=== PATIENT | male | born 1950 | race Caucasian/White ===

== ENCOUNTER 2021-02-23 13:26 | Inpatient (IN) ==
[2021-02-23] MEDS ORDERED: SODIUM CHLORIDE 0.9% 1000ML 500 ML IV ONE (13:45)
[2021-02-23 14:00] LABS: Hematocrit (blood only) 24.7 % (42-52); Hemoglobin 8.6 g/dL (14.0-18.0); Mean Corpuscular Hemoglobin 38.6 pg (25-34); Mean Corpuscular Hgb Conc 34.8 g/dL (32-36); Mean Corpuscular Volume 110.8 fL (80-100); Mean Platelet Volume 8.2 fL (7.4-10.4); Platelet Count 187 K/uL (130-400); RDW Coefficient of Variation 15.1 % (11.5-14.5); RDW Standard Deviation 59.7 fL (36.4-46.3); Red Blood Count 2.23 M/uL (4.7-6.1); White Blood Count 2.59 K/uL (4.8-10.8)
--- NOTE | 2021-02-23 14:06 | Emergency Department Note ---
Impression & Plan Pulmonary embolism, DVT (deep venous thrombosis), Fever and neutropenia, Anemia, Abnormal CBC, Hypoxia ED Provider Note Grades wereNAME: NOEL MANCILLA AGE: 70 SEX: M : 1950 ARRIVES VIA: Walk-In INFORMANT: Patient, ED PROVIDER(S): Neftaly Burt DO CHIEF COMPLAINT: Chest pain HPI: The patient is a 70-year-old male who presented to the emergency department for an evaluation of chest pain. The patient states that he started having chest pain over the course of the last 3 to 4 days. He was seen at [facility] and had a can tire work-up which included a CT of the chest. The CT the chest appeared to be consistent with a pulmonary embolism and the patient was started on Eliquis at that time. He started taking Eliquis on Sunday evening. He has been compliant with the medication as well as his other ou tpatient medication regimen. He continues to have very severe chest pain and shortness of breath. He notices significant symptoms upon walking. He also notices symptoms worsening with exertion. He denies having any nausea or vomiting. He has no lower extremity swelling or pain. The patient did have a recent aspiration of a knee effusion. He notices pain in his left leg ever since that time. He denies having any back pain or belly pain. He states his symptoms are moderate to severe and worsened with any exertion. Symptoms are mildly improved on oxygen and rest. ROS: See above HPI for pertinent positives & negatives. A total of 10 systems reviewed and were otherwise negative. PAST MEDICAL HISTORY: See Below PAST SURGICAL HISTORY: See Below FAMILY HISTORY: See Below SOCIAL HISTORY: See Below HOME MEDICATIONS: See Below ALLERGIES: See Below VITALS: See Below PHYSICAL EXAMINATION: GENERAL: The patient is awake and alert. The patient is somewhat anxious appearing. EYES: The conjunctivae are clear. The pupils are round and reactive. EARS, NOSE, MOUTH AND THROAT: The nose is without any evidence of any deformity. NECK: The neck is nontender and supple. RESPIRATORY: Normal respiratory effort is noted there is no evidence of wheezing rhonchi or rales CARDIOVASCULAR: Tachycardic rate was noted. There is no definite murmur. GASTROINTESTINAL: The abdomen is soft. Abdomen is nontender. MUSCULOSKELETAL/EXTREMITIES: There is no evidence of gross deformity full range of motion is noted in the hips and shoulders. There is an effusion noted of the left knee. SKIN: There is no obvious evidence of any rash. Calf tenderness was noted with the left leg. NEUROLOGIC: Patient is awake alert and oriented x3. MEDICAL DECISION MAKING: The patient is a 70-year-old male who presented to the emergency department with chest pain and difficulty breathing. He was diagnosed with a pulmonary embolism earlier this week. He was started on oral anticoagulation. He has been compliant with his medication regimen. He started having worsening symptoms and started having difficulty breathing so he came to the emergency department. The patient was hypoxic. He appeared to have very significant difficulty breathing on physical exam. The patient had left lower extremity pain and has a history of a recent arthrocentesis of his left knee. Ultrasound did reveal signs of DVT in this leg and that is likely the source of the pulmonary embolism. He also was found to have a very abnormal CBC with anemia and a low white blood cell count. During his time in the emergency department he did have a fever. This was treated with immediate blood cultures and IV antibiotics by the admitting team. The patient may require further work-up for possible causes of this anemia as well as his abnormal CBC and could be consistent with a leukemia process. The patient was started on IV heparin in the emergency department. He was reevaluated multiple times. [facility] have agreed to evaluate the patient in the emergency department for further management and disposition. Triage Nursing notes reviewed. Prior medical records reviewed Vital Signs: reviewed and remarkable for hypoxia and tachycardia. Differential diagnosis: Cardiac ischemia, aortic dissection, pulmonary embolism, pneumothorax, pneumonia, pericarditis, myocarditis, esophageal rupture, GERD, cholecystitis, pancreatitis, musculoskeletal, as well as other pathologies. ER treatment provided: See below Diagnostics interpreted by me: ECG: EKG was obtained in the emergency department. My interpretation is sinus tachycardia at 113 bpm. There is no ectopy. Lateral ST depressions were noted. This was compared to a tracing from February 18, 2021. Increased rate was noted. No other significant changes were appreciated. Cardiac Monitoring: An order was placed for continuous cardiac monitoring. The monitor shows a rate of 115 bpm with sinus tachycardia rhythm. Laboratory studies: As stated above and show below. Imaging studies: See below Consultation(s): 1600: I discussed this case with Debi who is on-call for the [facility] hospitalist group. They will evaluate the patient in the emergency department. ED COURSE: Procedures: none PDMP:reviewed and no issues Critical Care: I have personally spent greater than 50 minutes of critical care time in the direct management of this patient. This includes bedside care, interpretation of diagnostic studies, and testing, discussion with consultants, patient, and family members, and other required patient management activities. This 50 minutes is in excess of all separately billable procedures. Past Med/Surg History Medical History (Updated 02/23/21 @ 19:43 by Neftaly Burt DO) History of colon polyps History of melanoma Hypertension Pulmonary embolism Sciatica Social History Smoking Status: Never smoker Hx Alcohol Use: No Hx Substance Use: No Preferred Language: Yi Beliefs That Will Affect Care: None Current Living Situation: Spouse Feels Safe at Home: Yes Safety Concerns: Feels Safe At This Time Assistive Devices: Walker Allergies Allergies Allergy/AdvReac Type Severity Reaction Status Date / Time tadalafil [From Cialis] AdvReac Mild Rash Unverified 02/23/21 16:05 Home Meds Home Medications Medication Instructions Recorded Confirmed allopurinol 100 mg PO QAM 01/09/21 02/23/21 Folate 666 mg PO QAM 02/23/21 02/23/21 apixaban [Eliquis] 10 mg PO BID 02/23/21 02/23/21 cyanocobalamin (vitamin B-12) 1,000 mcg PO QAM 02/23/21 02/23/21 [Vitamin B-12] Results & Data (ED) Vital Signs Vital Signs - 24 hr 02/23/21 13:29 02/23/21 13:45 02/23/21 14:16 Temperature 36.8 C Temperature Source Temporal Artery Scan Oral Pulse Rate 97 H Pulse Rate [Apical] Pulse Rhythm Regular Pulse Strength Normal Respiratory Rate 18 Respiratory Effort / Characteristics Non-Labored Spontaneous Respiratory Depth Normal Respiratory Pattern Regular Blood Pressure 114/76 Blood Pressure [Left Arm] Blood Pressure Mean 88 Blood Pressure Mean [Left Arm] Blood Pressure Position Sitting Pulse Oximetry 95 92 Oxygen Delivery Method Room Air Room Air Nasal Cannula Oxygen Flow Rate 2 Sepsis Recent Fever Within 48 Hours No Sepsis New/Unexplained Change in Mental Status N/A Sepsis Action Taken by Nursing No Action Required 02/23/21 15:00 02/23/21 15:41 02/23/21 16:18 Temperature Temperature Source Pulse Rate 105 H 100 H Pulse Rate [Apical] 101 H Pulse Rhythm Pulse Strength Respiratory Rate 22 26 H 25 H Respiratory Effort / Characteristics Respiratory Depth Respiratory Pattern Blood Pressure 141/84 H Blood Pressure [Left Arm] 144/86 H Blood Pressure Mean 103 Blood Pressure Mean [Left Arm] 105 Blood Pressure Position Pulse Oximetry 100 96 Oxygen Delivery Method Nasal Cannula Nasal Cannula Oxygen Flow Rate 2 Sepsis Recent Fever Within 48 Hours Sepsis New/Unexplained Change in Mental Status Sepsis Action Taken by Correction Medications Current Medication List: was personally reviewed by me Laboratory Data Attestation: I reviewed the patient's lab results. Result diagrams: 02/23/21 13:45 02/23/21 13:45 Lab Results 02/23/21 02/23/21 02/23/21 Range/Units 13:45 13:45 13:45 WBC 2.59 L (4.8-10.8) K/uL RBC 2.23 L (4.7-6.1) M/uL Hgb 8.6 L (14.0-18.0) g/dL Hct 24.7 L (42-52) % MCV 110.8 H (80-100) fL MCH 38.6 H (25-34) pg MCHC 34.8 (32-36) g/dL RDW Std Deviation 59.7 H (36.4-46.3) fL RDW Coeff of Jemima 15.1 H (11.5-14.5) % Plt Count 187 (130-400) K/uL MPV 8.2 (7.4-10.4) fL Neutrophils % (Manual) 24.6 % Lymphocytes % (Manual) 46.3 % Monocytes % (Manual) 21.1 % Eosinophils % (Manual) 0.9 % Basophils % (Manual) 0.9 % Metamyelocytes % (Man) 0.9 % Myelocytes % (Man) 1.8 % Blast Cells % (Manual) 3.5 % Neutrophils # (Manual) 0.64 L (1.4-6.5) K/uL Total Absolute Neuts 0.64 L* (1.4-6.5) K/uL Lymphocytes # (Manual) 1.20 (1.2-3.4) K/uL Total Abs Lymphocytes 1.20 (1.2-3.4) K/uL Monocytes # (Manual) 0.55 (0.11-0.59) K/uL Eosinophils # (Manual) 0.02 (0-0.5) K/uL Basophils # (Manual) 0.02 (0-0.2) K/uL Metamyelocytes # (Man) 0.02 H (0-0) K/uL Myelocytes # (Manual) 0.05 H (0-0) K/uL Blast Cells # (Man) 0.09 H (0-0) K/uL Blood Smear Review [facility] 1+ PT Cancelled INR Cancelled APTT Cancelled PTT Ratio Cancelled Sodium 135 L (136-145) mmol/L Potassium 4.4 (3.5-5.1) mmol/L Chloride 101 (98-107) mmol/L Carbon Dioxide 24 (21-32) mmol/L Anion Gap 9.0 (3-11) BUN 17 (7-18) mg/dl Creatinine 1.07 (0.6-1.4) mg/dl Est Cr Clr Drug Dosing Not Reportable Est GFR ( Amer) 81.7 ml/min Est GFR (Non-Af Amer) 70.5 ml/min BUN/Creatinine Ratio 16.2 (10-20) Glucose 159 H (70-99) mg/dl Calcium 9.5 (8.5-10.1) mg/dl Total Bilirubin 0.7 (0.2-1) mg/dl AST 22 (15-37) U/L ALT 36 (12-78) U/L Alkaline Phosphatase 72 (45-117) U/L Troponin I < 0.015 (0-0.045) ng/ml NT-Pro-B Natriuret Pep Cancelled Total Protein 8.9 H (6.4-8.2) gm/dl Albumin 2.4 L (3.4-5.0) gm/dl Globulin 6.5 H (2.5-4.0) gm/dl Albumin/Globulin Ratio 0.4 L (0.9-2) Lipase 36 L (73-393) U/L COVID-19 Eval Order SARS-CoV-2 (PCR) (Negative) 02/23/21 02/23/21 02/23/21 Range/Units 13:45 14:32 14:32 WBC (4.8-10.8) K/uL RBC (4.7-6.1) M/uL Hgb (14.0-18.0) g/dL Hct (42-52) % MCV (80-100) fL MCH (25-34) pg MCHC (32-36) g/dL RDW Std Deviation (36.4-46.3) fL RDW Coeff of Jemima (11.5-14.5) % Plt Count (130-400) K/uL MPV (7.4-10.4) fL Neutrophils % (Manual) % Lymphocytes % (Manual) % Monocytes % (Manual) % Eosinophils % (Manual) % Basophils % (Manual) % Metamyelocytes % (Man) % Myelocytes % (Man) % Blast Cells % (Manual) % Neutrophils # (Manual) (1.4-6.5) K/uL Total Absolute Neuts (1.4-6.5) K/uL Lymphocytes # (Manual) (1.2-3.4) K/uL Total Abs Lymphocytes (1.2-3.4) K/uL Monocytes # (Manual) (0.11-0.59) K/uL Eosinophils # (Manual) (0-0.5) K/uL Basophils # (Manual) (0-0.2) K/uL Metamyelocytes # (Man) (0-0) K/uL Myelocytes # (Manual) (0-0) K/uL Blast Cells # (Man) (0-0) K/uL Blood Smear Review [facility] PT 13.0 H INR 1.3 H APTT 30.2 PTT Ratio 1.1 Sodium (136-145) mmol/L Potassium (3.5-5.1) mmol/L Chloride (98-107) mmol/L Carbon Dioxide (21-32) mmol/L Anion Gap (3-11) BUN (7-18) mg/dl Creatinine (0.6-1.4) mg/dl Est Cr Clr Drug Dosing Est GFR ( Amer) ml/min Est GFR (Non-Af Amer) ml/min BUN/Creatinine Ratio (10-20) Glucose (70-99) mg/dl Calcium (8.5-10.1) mg/dl Total Bilirubin (0.2-1) mg/dl AST (15-37) U/L ALT (12-78) U/L Alkaline Phosphatase (45-117) U/L Troponin I (0-0.045) ng/ml NT-Pro-B Natriuret Pep 310 Total Protein (6.4-8.2) gm/dl Albumin (3.4-5.0) gm/dl Globulin (2.5-4.0) gm/dl Albumin/Globulin Ratio (0.9-2) Lipase (73-393) U/L COVID-19 Eval Order Covid19 at [facility] SARS-CoV-2 (PCR) (Negative) 02/23/21 Range/Units 14:32 WBC (4.8-10.8) K/uL RBC (4.7-6.1) M/uL Hgb (14.0-18.0) g/dL Hct (42-52) % MCV (80-100) fL MCH (25-34) pg MCHC (32-36) g/dL RDW Std Deviation (36.4-46.3) fL RDW Coeff of Jemima (11.5-14.5) % Plt Count (130-400) K/uL MPV (7.4-10.4) fL Neutrophils % (Manual) % Lymphocytes % (Manual) % Monocytes % (Manual) % Eosinophils % (Manual) % Basophils % (Manual) % Metamyelocytes % (Man) % Myelocytes % (Man) % Blast Cells % (Manual) % Neutrophils # (Manual) (1.4-6.5) K/uL Total Absolute Neuts (1.4-6.5) K/uL Lymphocytes # (Manual) (1.2-3.4) K/uL Total Abs Lymphocytes (1.2-3.4) K/uL Monocytes # (Manual) (0.11-0.59) K/uL Eosinophils # (Manual) (0-0.5) K/uL Basophils # (Manual) (0-0.2) K/uL Metamyelocytes # (Man) (0-0) K/uL Myelocytes # (Manual) (0-0) K/uL Blast Cells # (Man) (0-0) K/uL Blood Smear Review [facility] PT INR APTT PTT Ratio Sodium (136-145) mmol/L Potassium (3.5-5.1) mmol/L Chloride (98-107) mmol/L Carbon Dioxide (21-32) mmol/L Anion Gap (3-11) BUN (7-18) mg/dl Creatinine (0.6-1.4) mg/dl Est Cr Clr Drug Dosing Est GFR ( Amer) ml/min Est GFR (Non-Af Amer) ml/min BUN/Creatinine Ratio (10-20) Glucose (70-99) mg/dl Calcium (8.5-10.1) mg/dl Total Bilirubin (0.2-1) mg/dl AST (15-37) U/L ALT (12-78) U/L Alkaline Phosphatase (45-117) U/L Troponin I (0-0.045) ng/ml NT-Pro-B Natriuret Pep Total Protein (6.4-8.2) gm/dl Albumin (3.4-5.0) gm/dl Globulin (2.5-4.0) gm/dl Albumin/Globulin Ratio (0.9-2) Lipase (73-393) U/L COVID-19 Eval Order SARS-CoV-2 (PCR) NEGATIVE (Negative) Administered Medications Heparin Sodium/Dextrose (Heparin Sodium/Dextrose) 25,000 units in 500 mls @ 29 mls/hr IV .[id number] SILVA; Protocol Stop: 03/25/21 15:56 Last Titration: 02/23/21 19:37 Dose: 1,450 units/hr, 29 mls/hr Documented by: [id number] Cosigned by: [id number] Admin: 02/23/21 15:53 Dose: 1,450 units/hr, 29 mls/hr Documented by: [id number] Cosigned by: [id number] Vancomycin HCl 2,500 mg/ (Sodium Chloride) 550 mls @ 200 mls/hr IV 1845 ONE; Protocol Stop: 02/23/21 21:29 Last Admin: 02/23/21 19:00 Dose: 200 mls/hr Documented by: [id number] Discontinued Medications Acetaminophen (Acetaminophen 500 Mg Tab) 500 mg PO NOW STA Stop: 02/23/21 17:09 Last Admin: 02/23/21 17:40 Dose: 500 mg Documented by: [id number] Heparin Sodium (Porcine) (Heparin Sod (Porcine) 1000 Unit/Ml) 7,000 units IV NOW ONE Stop: 02/23/21 15:58 Last Admin: 02/23/21 15:52 Dose: 7,000 units Documented by: [id number] Cosigned by: [id number] Heparin Sodium/Dextrose (Heparin Iv Adult Wt-Based Standard With Bolus Protocol) 1 ea IV NOW STA; Protocol Stop: 02/23/21 15:43 Last Admin: 02/23/21 16:05 Dose: 1 ea Documented by: [id number] Sodium Chloride (Nss 1000ml) 500 mls @ 999 mls/hr IV .Q31M ONE Stop: 02/23/21 14:15 Last Infusion: 02/23/21 14:46 Dose: 0 mls/hr Documented by: [id number] Admin: 02/23/21 14:15 Dose: 999 mls/hr Documented by: [id number] Piperacillin Sod/Tazobactam Sod (Zosyn) 4.5 gm in 120 mls @ 240 mls/hr IV NOW STA; Protocol Stop: 02/23/21 18:01 Last Infusion: 02/23/21 19:06 Dose: 0 mls/hr Documented by: [id number] Admin: 02/23/21 17:41 Dose: 240 mls/hr Documented by: [id number] Imaging Data Radiologist's Impression: Chest X-Ray 02/23/21 13:45 SINGLE VIEW CHEST CLINICAL HISTORY: Atypical chest pain. FINDINGS: An AP, portable, upright chest radiograph is obtained No prior studies are available for comparison at the time of dictation. The examination is degraded by portable technique and patient rotation. The heart is enlarged. The pulmonary vasculature is noncongested. There are mild bibasilar airspace opacities. No large pleural effusion or pneumothorax is seen. The skeletal structures are osteopenic. The bony thorax is grossly intact. IMPRESSION: 1. Cardiomegaly without radiographic evidence of congestive failure. 2. There are mild bibasilar airspace opacities which likely represent atele ctasis. Correlate clinically for evidence of a mild infectious/inflammatory pneumonitis. ACT 112: Negative or not required by law. Electronically signed by: Baljinder Naqvi M.D. 02/23/2021 2:16 PM Venous Doppler Study 02/23/21 13:45 BILATERAL LOWER EXTREMITY VENOUS DOPPLER HISTORY: Screening study in a patient with pulmonary embolus recent PE COMPARISON STUDY: None. FINDINGS: There is normal compressibility, flow, and augmentation within the [facility] lower extremity deep venous structures. Occlusive thrombus is noted within the left superficial femoral vein medial and distal portions extending into the peroneal vein. Remaining deep venous structures of the left lower extremity appear unremarkable. Mildly complex Antony's cyst on the left measures 5.6 x 2.4 x 0.9 cm. IMPRESSION: 1. Left lower extremity deep venous thrombi as above. 2. No right lower extremity DVT. ACT 112: Negative or not required by law. Electronically signed by: Csear Masterson M.D. 02/23/2021 3:21 PM Discharge Plan Visit Data Chief Complaint: Chest Pain Stated Complaint: CHEST PAIN, ON ELQUIS ED Provider: Neftaly Burt Discharge Problem: Pulmonary embolism, DVT (deep venous thrombosis), Fever and neutropenia, Anemia, Abnormal CBC, Hypoxia Patient Disposition: Admitted As Inpatient Condition: Good Discharge Instructions Interventions: ED Discharge Assessment Last Done: 02/23/21 17:54 Discharge Problem: Pulmonary embolism Qualifiers: Pulmonary embolism type: unspecified Chronicity: acute Acute cor pulmonale presence: unspecified Qualified Code(s): I26.99 - Other pulmonary embolism without acute cor pulmonale DVT (deep venous thrombosis) Qualifiers: DVT location: lower extremity Affected thrombotic vein of extremity: popliteal Chronicity: acute Laterality: left Qualified Code(s): I82.432 - Acute embolism and thrombosis of left popliteal vein Anemia Qualifiers: Anemia type: unspecified type Qualified Code(s): D64.9 - Anemia, unspecified
--- NOTE | 2021-02-23 14:18 | XRay Report ---
SINGLE VIEW CHEST CLINICAL HISTORY: Atypical chest pain. FINDINGS: An AP, portable, upright chest radiograph is obtained No prior studies are available for co mparison at the time of dictation. The examination is degraded by portable technique and patient rota tion. The heart is enlarged. The pulmonary vasculature is noncongested. There are mild bibasilar airs pace opacities. No large pleural effusion or pneumothorax is seen. The skeletal structures are osteop enic. The bony thorax is grossly intact. IMPRESSION: 1. Cardiomegaly without radiographic evidence of congestive failure. 2. There are mild bibasilar airspace opacities which likely represent atelectasis. Correlate clinical ly for evidence of a mild infectious/inflammatory pneumonitis. ACT 112: Negative or not required by law. Electronically signed by: Baljinder Naqvi M.D. 02/23/2021 2:16 PM
[2021-02-23 14:20] LABS: Alanine Aminotransferase 36 U/L (12-78); Albumin Level 2.4 gm/dl (3.4-5.0); Aspartate Aminotransferase 22 U/L (15-37); BUN Creatinine Ratio 16.2 (10-20); Blood Urea Nitrogen 17 mg/dl (7-18); Calcium 9.5 mg/dl (8.5-10.1); Carbon Dioxide 24 mmol/L (21-32); Chloride 101 mmol/L (98-107); Est GFR (African American) 81.7 ml/min; Est GFR (Non-African American) 70.5 ml/min; Glucose 159 mg/dl (70-99); Lipase 36 U/L (73-393); Potassium 4.4 mmol/L (3.5-5.1); Sodium 135 mmol/L (136-145)
[2021-02-23 14:24] LABS: Albumin Globulin Ratio 0.4 (0.9-2); Alkaline Phosphatase 72 U/L (45-117); Bilirubin,Total 0.7 mg/dl (0.2-1); Globulin 6.5 gm/dl (2.5-4.0); Total Protein 8.9 gm/dl (6.4-8.2); Troponin I < 0.015 ng/ml (0-0.045)
[2021-02-23 14:57] LABS: INR 1.3 (0.9-1.1); Partial Thromboplastin Ratio 1.1; Partial Thromboplastin Time 30.2 Seconds (21.0-31.0)
[2021-02-23 15:05] LABS: Rouleaux 1+
[2021-02-23 15:07] LABS: ANC (manual) 0.64 K/uL (1.4-6.5); Basophils # (manual) 0.02 K/uL (0-0.2); Basophils % (manual) 0.9 %; Blast # (manual) 0.09 K/uL (0-0); Blast Cells % (manual) 3.5 %; Eosinophils # (manual) 0.02 K/uL (0-0.5); Eosinophils % (manual) 0.9 %; Lymphocytes % (manual) 46.3 %; Metamyelocytes # (manual) 0.02 K/uL (0-0); Metamyelocytes % (manual) 0.9 %; Monocytes # (manual) 0.55 K/uL (0.11-0.59); Monocytes % (manual) 21.1 %; Myelocytes # (manual) 0.05 K/uL (0-0); Myelocytes % (manual) 1.8 %; Neutrophils # (manual) 0.64 K/uL (1.4-6.5); Neutrophils % (manual) 24.6 %
--- NOTE | 2021-02-23 15:22 | Ultrasound Report ---
BILATERAL LOWER EXTREMITY VENOUS DOPPLER HISTORY: Screening study in a patient with pulmonary embolus recent PE COMPARISON STUDY: None. FINDINGS: There is normal compressibility, flow, and augmentation within the right lower extremity de ep venous structures. Occlusive thrombus is noted within the left superficial femoral vein medial and distal portions extending into the peroneal vein. Remaining deep venous structures of the left lower extremity appear unremarkable. Mildly complex Antony's cyst on the left measures 5.6 x 2.4 x 0.9 cm. IMPRESSION: 1. Left lower extremity deep venous thrombi as above. 2. No right lower extremity DVT. ACT 112: Negative or not required by law. Electronically signed by: Cesar Masterson M.D. 02/23/2021 3:21 PM
[2021-02-23] MEDS ORDERED: Heparin IV Adult Wt-Based Standard WITH Bolus Protocol IV STA (15:42)
[2021-02-23] MEDS: HEPARIN SODIUM/DEXTROSE 25,000 UNITS/500 ML BAG IV SCH (15:53)
[2021-02-23] MEDS ORDERED: HEPARIN SOD (PORCINE) 1000 UNIT/ML IV ONE ×2 (15:57)
--- NOTE | 2021-02-23 16:17 | History & Physical Report ---
Date of Service February 23, 2021 Assessment & Plan (1) Sepsis: - Admit to PCU, possible that the pt may require ICU if not improves within next few hours - Pancytopenia and likely unable to mount adequate immune response currently against infection - tmax 39.2 with rigors, tachycardia, hypoxic with o2 sats in 88% on RA. -Possible source source possibly pulmonary with CT findings showing tree in bud and possible aspiration? Other source possibly Left knee s/p tap for gout but was done on 01/10/21 and had initially improved- now effusion present and painful with movement. - Check BCx x 2, lactic acid, procal, UA and urine culture now - Empirical vanc and zosyn IV now - Consider CT head, abd and pelvis for further metastatic workup - Neg COVID-19 (2) Pancytopenia: - Heme/onc consulted - Dr. Triplett. Was supposed to see heme/onc as outpatient but has not yet as it was just arranged by his PCP - WBC 2.59, hgb 8.6, hct 24.7, abs neut 0.64, MCV 110.8, MCH 38.6. - Concern for leukemia with findings, will treat sepsis as above and then plan to proceed with metastatic workup - Will get blood consent and type and screen now in case needs for transfusion - negative ROS for bleeding currently. (3) Chest pain: - Initial troponin is negative. Trend cardiac biomarkers x 2 more sets - EKG reviewed as above - Check 2 D echo - Consulted cardiology - PT/OT consulted (4) Pulmonary embolism: - Diagnosed on 02/21/21 as outpatient with CTA dt SOB, started on Eliquis. Would not consider the patient an eliquis failure with only 2 days of the therapy. No indication for thrombolysis currently. - Cont on heparin gtt - Consult pulmonology for PE/hypoxia/sepsis- discussed with Dr. Polk. (5) Hypertension: - Hx of such, pt was recently taken off his BP medications - BP elevated likely to sepsis, dehydration secondary to poor PO intake. (6) Macrocytic anemia: - As above (7) Weight loss: - Notes 35 lbs weight loss within past month, loss of appetite. Denies B symptoms of night sweats, chills but still have concern for malignancy. Workup as above. (8) Fatigue: - Secondary to PE, sepsis, and possible malignancy (9) Gout: - Hx of such, had knee aspirated on 01/10/[address] Cui in outpt orthopedics - had corticosteroid injection at that time. [place]BC [place] that time was [id number] and slightly cloudy, + gout crystals. Completed 5 day course of colchicine and now on maintenance allopurinol. (10) DVT prophylaxis: teds, heparin gtt GI ppx: famotidine IV BID CODE: FULL Dispo: Admit, likely to remain in the hospital x 2 days History of Present Illness Primary Care Provider: Yg Kenny, This is a 70-year-old male with PMHx of recent PE and DVT diagnosis now on Eliquis, macrocytic anemia, elevated ferritin, shortness of breath, gouty arthropathy, hypertension. He initially presented to his creative manager on 02/18 for routine appointment for his skin with hx on nonmelanoma skin cancer. Due to his level of fatigue, his creative manager got him to see his PCP in the office right after their appointment. Dr. Kenny, PCP saw him on 02/18/2021 for complaints of not feeling himself, lack of energy, weight loss and worsening shortness of breath and left toe pain. He received 1 L NSS in the office at that time due to hypotension and his BP meds were discontinued. Left knee was tapped to check for gout about 6 weeks ago and he was found to have gout crystals, and placed on 5 day so f colchicine and then maintenance allopurinol. His blood work was the most revealing showing pancytopenia with macrocytic anemia, and stable platelet count from PCP appointment. He has been referred to Heme/onc for further workup but not seen them yet. Pt labs are similar today. CXR was unimpressive on 02/18, so underwent CT angio on 02/21/2021 showing segmental PE in right upper and lower lobes, few small tree-in-bud opacities may reflect small airway infection or aspiration, and small lung nodules measuring 4 to 5 mm. He was started on Eliquis. Left lower extremity Doppler today in the ER is positive for DVT. At bedside the patient has difficult talking to me due to hoarseness, and remains short of breath. He did start taking eliquis on Sunday night and last dose was this morning. He notes just started really feeling bad today. He has had poor PO intake for several weeks due to poor appetite, and has lost 35 lbs in the past month. He admits to chills and sometimes sweats at night. Remote hx of smoking and has not drank any alcohol in past 2 months. He used to drink " a few six packs in a week". No alcohol recently because he hasn't felt like himself. Family Hx: Mother diet last year in her 80s due to hip fracture and cardiac issues following this. Father diet of brain aneurysm in his 50s many years ago. Two sisters, [employer]. He was started on a heparin gtt in there ER. Pt has rigors at bedside, and after my visit was informed that he had a Tmax of 39.2. Concern for septic presentation so will proceed with infectious workup and cover with empiric anti biotics vanc and zosyn. Allergies Allergy/AdvReac Type Severity Reaction Status Date / Time tadalafil [From Cialis] AdvReac Mild Rash Unverified 02/23/21 16:05 Home Medications Medication Instructions Recorded Confirmed Type allopurinol 100 mg PO QAM 01/09/21 02/23/21 History Folate 666 mg PO QAM 02/23/21 02/23/21 History apixaban [Eliquis] 10 mg PO BID 02/23/21 02/23/21 History cyanocobalamin (vitamin B-12) 1,000 mcg PO QAM 02/23/21 02/23/21 History [Vitamin B-12] Past Med/Surg History Medical History (Updated 02/23/21 @ 17:20 by Anupama Headley PA-C) History of colon polyps History of melanoma Hypertension Pulmonary embolism Sciatica Social History Smoking Status: Never smoker Hx Alcohol Use: No Hx Substance Use: No Preferred Language: Romansh Beliefs That Will Affect Care: None Current Living Situation: Spouse Feels Safe at Home: Yes Safety Concerns: Feels Safe At This Time Assistive Devices: Walker Review of Systems Review of Systems: Constitutional: No fever, sweats until now + chills Eyes: No diplopia, no worsening or blurred vision ENT: normal hearing, no trouble swallowing, + Hoarse voice Respiratory: No cough, sputum, +dyspnea with ADLs and on exertion Cardiovascular: + chest heaviness/pain with exertion, no current pain, tightness or palpitations Abdomen: No pain, nausea, vomiting, diarrhea or constipation, no blood in stool : no dysuria, no hematuria Musculoskeletal: + Left knee joint pain, left calf pain and edema Neurologic: + Generalized weakness, no numbness/tingling,+ balance problems and using a walker to help ambulate due to left knee pain Psychiatric: No anxiety or depression Skin: No rash or itch Physical Exam Physical Exam: General: awake, alert, moderate distress, toxic appearing, + rigors developing Head: Normocephalic, atraumatic ENT: PERRL, EOMI, no pharyngeal exudate, mucous membranes dry Chest: Clear to auscultation, on 2 L via NC with O2 sats 98%, no adventitious breath sounds Cardiac: Sinus tach with HR in 110s, no murmur, no JVD, normal peripheral pulses, good capillary refill Abdominal: NABS x 4 quadrants, soft, nondistended, nontender to palpation, no rebound or guarding Extremities: Left knee edematous with effusion superiorly, painful to move, no erythema, otherwise normal inspection, no peripheral edema or erythema, calfs nontender to palpation Psych: Normal mood and affect Neuro: AAO x 3, strength intact bilaterally and rated 5/5, no motor deficits, speech is clear, no peripheral sensory deficits Results & Data Results & Data ([facility]) Vital Signs (Past 12 Hours) Vital Signs Temp Pulse Pulse Resp BP BP Pulse Ox 02/23/21 15:41 101 H 26 H 144/86 H 96 02/23/21 15:00 105 H 22 100 02/23/21 14:16 92 02/23/21 13:29 36.8 C 97 H 18 114/76 95 Laboratory Results Labs 02/23/21 02/23/21 02/23/21 13:45 13:45 13:45 WBC 2.59 L RBC 2.23 L Hgb 8.6 L Hct 24.7 L MCV 110.8 H MCH 38.6 H MCHC 34.8 RDW Std Deviation 59.7 H RDW Coeff of Jemima 15.1 H Plt Count 187 MPV 8.2 Neutrophils % (Manual) 24.6 Lymphocytes % (Manual) 46.3 Monocytes % (Manual) 21.1 Eosinophils % (Manual) 0.9 Basophils % (Manual) 0.9 Metamyelocytes % (Man) 0.9 Myelocytes % (Man) 1.8 Blast Cells % (Manual) 3.5 Neutrophils # (Manual) 0.64 L Total Absolute Neuts 0.64 L* Lymphocytes # (Manual) 1.20 Total Abs Lymphocytes 1.20 Monocytes # (Manual) 0.55 Eosinophils # (Manual) 0.02 Basophils # (Manual) 0.02 Metamyelocytes # (Man) 0.02 H Myelocytes # (Manual) 0.05 H Blast Cells # (Man) 0.09 H Blood Smear Review Rouleaux 1+ PT Cancelled INR Cancelled APTT Cancelled PTT Ratio Cancelled Sodium 135 L Potassium 4.4 Chloride 101 Carbon Dioxide 24 Anion Gap 9.0 BUN 17 Creatinine 1.07 Est Cr Clr Drug Dosing Not Reportable Est GFR ( Amer) 81.7 Est GFR (Non-Af Amer) 70.5 BUN/Creatinine Ratio 16.2 Glucose 159 H Calcium 9.5 Total Bilirubin 0.7 AST 22 ALT 36 Alkaline Phosphatase 72 Troponin I < 0.015 Total Protein 8.9 H Albumin 2.4 L Globulin 6.5 H Albumin/Globulin Ratio 0.4 L Lipase 36 L COVID-19 Eval Order SARS-CoV-2 (PCR) 02/23/21 02/23/21 02/23/21 14:32 14:32 14:32 WBC RBC Hgb Hct MCV MCH MCHC RDW Std Deviation RDW Coeff of Jemima Plt Count MPV Neutrophils % (Manual) Lymphocytes % (Manual) Monocytes % (Manual) Eosinophils % (Manual) Basophils % (Manual) Metamyelocytes % (Man) Myelocytes % (Man) Blast Cells % (Manual) Neutrophils # (Manual) Total Absolute Neuts Lymphocytes # (Manual) Total Abs Lymphocytes Monocytes # (Manual) Eosinophils # (Manual) Basophils # (Manual) Metamyelocytes # (Man) Myelocytes # (Manual) Blast Cells # (Man) Blood Smear Review Rouleaux PT 13.0 H INR 1.3 H APTT 30.2 PTT Ratio 1.1 Sodium Potassium Chloride Carbon Dioxide Anion Gap BUN Creatinine Est Cr Clr Drug Dosing Est GFR ( Amer) Est GFR (Non-Af Amer) BUN/Creatinine Ratio Glucose Calcium Total Bilirubin AST ALT Alkaline Phosphatase Troponin I Total Protein Albumin Globulin Albumin/Globulin Ratio Lipase COVID-19 Eval Order Covid19 at [facility] SARS-CoV-2 (PCR) NEGATIVE Diagnostic Findings Chest X-Ray 02/23/21 13:45 SINGLE VIEW CHEST CLINICAL HISTORY: Atypical chest pain. FINDINGS: An AP, portable, upright chest radiograph is obtained No prior studies are available for comparison at the time of dictation. The examination is degraded by portable technique and patient rotation. The heart is enlarged. The pulmonary vasculature is noncongested. There are mild bibasilar airspace opacities. No large pleural effusion or pneumothorax is seen. The skeletal structures are osteopenic. The bony thorax is grossly intact. IMPRESSION: 1. Cardiomegaly without radiographic evidence of congestive failure. 2. There are mild bibasilar airspace opacities which likely represent atelectasis. Correlate clinically for evidence of a mild infectious/inflammatory pneumonitis. ACT 112: Negative or not required by law. Electronically signed by: Baljinder Naqvi M.D. 02/23/2021 2:16 PM Venous Doppler Study 02/23/21 13:45 BILATERAL LOWER EXTREMITY VENOUS DOPPLER HISTORY: Screening study in a patient with pulmonary embolus recent PE COMPARISON STUDY: None. FINDINGS: There is normal compressibility, flow, and augmentation within the right lower extremity deep venous structures. Occlusive thrombus is noted within the left superficial femoral vein medial and distal portions extending into the peroneal vein. Remaining deep venous structures of the left lower extremity appear unremarkable. Mildly complex Antony's cyst on the left measures 5.6 x 2.4 x 0.9 cm. IMPRESSION: 1. Left lower extremity deep venous thrombi as above. 2. No right lower extremity DVT. ACT 112: Negative or not required by law. Electronically signed by: Cesar Masterson M.D. 02/23/2021 3:21 PM ECG Additional Comments: 23-FEB-2021 13:38:42 [facility]-EDSTAT ROUTINE RETRIEVAL Poor data quality, interpretation may be adversely affected Sinus tachycardia Inferior infarct , age undetermined Cannot rule out Anterior infarct , age undetermined Abnormal ECG No previous ECGs available 25mm/s 10mm/mV 150Hz 9.0.9 12SL 241 VIKI: 15 Referred by: REFERRED SELF Unconfirmed Vent. rate 113 BPM OH interval 142 ms QRS duration 86 ms QT/QTc 318/436 ms Code Status & VTE Plan Code Status Full code - discussed with pt and at bedside Supervising Physician Co-Signing Physician Notes I saw this patient with the physician middle school assistant principal, I participated in the history, physical, review of systems, and physical exam. I reviewed the medications with the patient and the physician middle school assistant principal and helped reconcile the medications. I helped take a detailed family and social history as well. I formulated the assessment and plan personally with the physician middle school assistant principal and went over it with the patient. ROS-No Headache, No Visual Changes, No Nausea, No Vomiting, + Fever, + Chills, No Neck Pain or Stiffness, + Chest Pain, No Palpitations, + SOB, + [place]AL[place], No Cough, No Sputum, No Wheezing, No Abdominal Pain, No Diarrhea, No Hematemesis, No Hemoptysis, No Unexpected Weight Loss, No Flank pain, No Melena, No Hematochezia, No Frequency, No Urgency, No Burning, No Hematuria, No Rashes, No Diaphoresis. Appetite is Normal, 25 il weight loss over last 30-35 days Physical Exam Gen-AAO x 3, Mod distress, febrile, Toxic c rigors, Conversational Dyspnea Head-NCAT, EOMI, PERRLA, Anicteric Sclera, No Posterior Pharyngeal Erythema Neck-Supple, No JVD, No Thyromegaly, No Masses, No LAD, No Bruits Lungs-Clear to Auscultation Bilaterally, No Rales, No Rhonchi, No Wheezing, No Crepitus Chest-No S4, +S1, +S2, No S3, No Murmurs, No Rubs, No Gallops, No Ectopy Abdomen-Soft, Bowel Sounds Present, Non Tender, Non Distended, No Hepatomegaly, No Splenomegaly, No Palpable Masses, No Rebound, No Rigidity, No Guarding Musculoskeletal-Full Range of Motion Bilaterally, No CVAT Extremities-No Cyanosis, No Clubbing, No Edema Nuero-Cranial Nerves II-XII grossly intact, Motor WNL, DTRs WNL, Strength WNL, Non Focal Psych-Normal Mood
[2021-02-23] MEDS ORDERED: VANCOMYCIN CONSULT ACTIVE PRN (17:02)
[2021-02-23] MEDS ORDERED: PIPERACILL/TAZOBAC CONSULT ACTIVE PRN (17:02)
[2021-02-23] MEDS ORDERED: ACETAMINOPHEN 500 MG TAB PO STA (17:08)
[2021-02-23] MEDS ORDERED: PIPERACILLIN/TAZOBACTAM 4.5 GM/120 ML BAG IV STA (17:32)
[2021-02-23] MEDS ORDERED: ONDANSETRON INJ 2 MG/ML 2 ML VIAL IV PRN (18:35)
[2021-02-23] MEDS ORDERED: VANCOMYCIN HCL 2,500 MG in SODIUM CHLORIDE 0.9% 500 ML IV ONE (18:45)
[2021-02-23] MEDS ORDERED: LACTATED RINGER'S 1,000 ML IV ONE (19:00)
[2021-02-23] MEDS: FAMOTIDINE 20 MG in SYRINGE 3 ML IV SCH (22:24)
[2021-02-23] MEDS: ACETAMINOPHEN 325 MG TAB PO PRN (22:24)
[2021-02-23 22:25] LABS: Partial Thromboplastin Ratio 1.7
[2021-02-23 22:35] LABS: Troponin I < 0.015 ng/ml (0-0.045)
[2021-02-23] MEDS ORDERED: SODIUM CHLORIDE 0.9% NEBU SOLN 3 ML NEB STA (22:46)
[2021-02-23] MEDS ORDERED: MAGNESIUM SULFATE / D5W 1 GM/100 ML BAG IV ONE (22:50)
--- NOTE | 2021-02-23 22:52 | Communication Note ---
Date of Service: February 23, 2021 Notified by RN of worsening oxygenation, persistent fever on current vancomycin, Zosyn Rx Patient denies cough symptoms. Add Doxycycline to regimen for atypical coverage given atypical pneumonia symptoms.
[2021-02-23 22:59] LABS: Magnesium 1.9 mg/dl (1.8-2.4)
[2021-02-23] MEDS ORDERED: methylPREDNISolone 40 MG in SYRINGE 0 ML IV STA (23:02)
[2021-02-23] MEDS ORDERED: DOXYCYCLINE HYCLATE 100 MG in DEXTROSE 5% 100 ML IV STA (23:03)
[2021-02-23] MEDS ORDERED: KETOROLAC TROMETHAMINE 15 MG/ML VIAL IV ONE (23:15)
[2021-02-23 23:25] LABS: Base Excess ABG 1.4 mEq/L (-9-1.8); HCO3 ABG 24 mmol/L (19-24); Oxygen Saturation ABG 93.6 % (90-95); PCO2 ABG 28 mmHg (35-46); PO2 ABG 70 mmHg (80-95)
[2021-02-23 23:29] LABS: Allen Test POS (Pos)
[2021-02-23 23:35] LABS: pH ABG 7.54 (7.35-7.45)
[2021-02-24] MEDS: LACTATED RINGER'S 1,000 ML IV SCH ×2 (02:30→08:11)
[2021-02-24 07:00] LABS: INR 1.3 (0.9-1.1); Partial Thromboplastin Ratio 2.8
[2021-02-24 07:07] LABS: Partial Thromboplastin Time 72.9 Seconds (21.0-31.0)
--- NOTE | 2021-02-24 07:08 | XRay Report ---
SINGLE VIEW CHEST CLINICAL HISTORY: Hypoxia. FINDINGS: An AP, portable, upright chest radiograph is compared to study performed earlier the same d ay 02/23/2021. The examination is degraded by portable technique and patient rotation. The heart is enlarged noting atherosclerotic calcification of the thoracic aorta. There is prominence of the pulmo nary vasculature. Atelectasis is noted at the lung bases. Question trace left pleural effusion. No pn eumothorax is seen. The skeletal structures are osteopenic. The bony thorax is grossly intact. IMPRESSION: 1. Cardiomegaly with prominence of the central pulmonary vessels. Correlate clinically for evidence o f mild congestive failure. 2. Question trace left pleural effusion. ACT 112: Negative or not required by law. Electronically signed by: Baljinder Naqvi M.D. 02/24/2021 7:07 AM
[2021-02-24 07:12] LABS: Alanine Aminotransferase 35 U/L (12-78); Albumin Level 2.1 gm/dl (3.4-5.0); Aspartate Aminotransferase 19 U/L (15-37); BUN Creatinine Ratio 13.1 (10-20); Bilirubin Direct 0.4 mg/dl (0-0.2); Blood Urea Nitrogen 21 mg/dl (7-18); Calcium 8.9 mg/dl (8.5-10.1); Carbon Dioxide 25 mmol/L (21-32); Chloride 104 mmol/L (98-107); Creatinine Clr Calc Pharmacy 49.9 ml/min; Est GFR (African American) 49.8 ml/min; Glucose 162 mg/dl (70-99); Magnesium 2.4 mg/dl (1.8-2.4); Potassium 4.4 mmol/L (3.5-5.1); Sodium 135 mmol/L (136-145)
[2021-02-24 07:23] LABS: Albumin Globulin Ratio 0.4 (0.9-2); Alkaline Phosphatase 67 U/L (45-117); Bilirubin,Total 0.9 mg/dl (0.2-1); Phosphorus 4.5 mg/dl (2.5-4.9); Thyroid Stimulating Hormone 0.791 uIu/ml (0.300-4.500); Total Protein 8.1 gm/dl (6.4-8.2); Troponin I < 0.015 ng/ml (0-0.045)
[2021-02-24] MEDS ORDERED: PIPERACILLIN/TAZOBACTAM 4.5 GM in DEXTROSE 5% 100 ML IV ONE (07:45)
[2021-02-24] MEDS ORDERED: VANCOMYCIN HCL 1,250 MG in SODIUM CHLORIDE 0.9% 250 ML IV SCH (08:00)
[2021-02-24] MEDS: FAMOTIDINE 20 MG in SYRINGE 3 ML IV SCH (08:20)
[2021-02-24] MEDS ORDERED: DOXYCYCLINE HYCLATE 100 MG CAP PO SCH (09:00)
--- NOTE | 2021-02-24 09:55 | Electrocardiogram Report ---
Test Reason : Blood Pressure : / mmHG Vent. Rate : 113 BPM Atrial Rate : 113 BPM P-R Int : 142 ms QRS Dur : 086 ms QT Int : 318 ms P-R-T Axes : 021 001 013 degrees QTc Int : 436 ms Poor data quality, interpretation may be adversely affected Sinus tachycardia possible Inferior infarct , age undetermined Abnormal ECG No previous ECGs available Confirmed by Gary Johnson ([id number]) on 02/24/2021 9:54:48 AM Referred By: REFERRED SELF Confirmed By:Mikey Johnson
[2021-02-24] MEDS: HEPARIN SODIUM/DEXTROSE 25,000 UNITS/500 ML BAG IV SCH (10:15)
[2021-02-24] MEDS ORDERED: VANCOMYCIN HCL 1,250 MG in SODIUM CHLORIDE 0.9% 250 ML IV ONE (11:00)
[2021-02-24 11:15] LABS: Hematocrit (blood only) 22.4 % (42-52); Hemoglobin 7.6 g/dL (14.0-18.0); Mean Corpuscular Hemoglobin 38.4 pg (25-34); Mean Corpuscular Hgb Conc 33.9 g/dL (32-36); Mean Corpuscular Volume 113.1 fL (80-100); Mean Platelet Volume 8.9 fL (7.4-10.4); Platelet Count 182 K/uL (130-400); RDW Coefficient of Variation 15.3 % (11.5-14.5); RDW Standard Deviation 61.2 fL (36.4-46.3); Red Blood Count 1.98 M/uL (4.7-6.1)
--- NOTE | 2021-02-24 11:46 | Cardiology Consultation ---
Date of Consultation February 24, 2021 Assessment & Plan (1) Chest pain: 70-year-old male presents with neutropenic sepsis, recent diagnosis of acute pulmonary embolus referred for evaluation of mild chest pressure sensation Symptoms atypical for angina and no evidence by EKG or enzyme criteria for angina or ischemic etiology. Suspect secondary to pulmonary embolus recently diagnosed, tachycardia, acute illness including anemia. LV systolic function is normal Would recommend treating underlying issues (2) Anemia: Patient with pancytopenia on presentation. Notes 30 pound weight loss in the last month Outpatient history notable for recent treatment with colchicine for gouty arthropathy (3) Pancytopenia: (4) Weight loss: (5) Pulmonary embolism: History of Present Illness Reason for Consultation: Chest pressure, neutropenic sepsis Requesting Physician: Dr. Nair Attending Physician: Min Nair MD History of Present Illness Patient is a 70-year-old male without prior cardiac history with recent diagnosis of pulmonary embolus on 02/21/2021. Patient presents with signs and symptoms of possible neutropenic sepsis. Patient referred to cardiology due to complaints of chest pressure sensation vague in nature. No prior history of angina, congestive heart failure, tachypalpitations, syncope or near syncope. No history rheumatic fever scarlet fever renal or hepatic disease. He does carry a history of hypertension hyperlipidemia. Notes low-grade fever malaise times several weeks. No acute bleeding issues melena hematochezia dysuria hematuria Recently treated for gouty arthritic with colchicine History notable for 30 pound weight loss. Allergies Allergy/AdvReac Type Severity Reaction Status Date / Time tadalafil [From Cialis] AdvReac Mild Rash Unverified 02/23/21 16:05 Home Medications Medication Instructions Recorded Confirmed Type allopurinol 100 mg PO QAM 01/09/21 02/23/21 History Folate 666 mg PO QAM 02/23/21 02/23/21 History apixaban [Eliquis] 10 mg PO BID 02/23/21 02/23/21 History cyanocobalamin (vitamin B-12) 1,000 mcg PO QAM 02/23/21 02/23/21 History [Vitamin B-12] Patient History Medical History (Updated 02/23/21 @ 19:43 by Neftaly Burt DO) History of colon polyps History of melanoma Hypertension Pulmonary embolism Sciatica Social History Smoking Status: Never smoker Hx Alcohol Use: No Hx Substance Use: No Preferred Language: Setswana Beliefs That Will Affect Care: None Current Living Situation: Spouse Feels Safe at Home: Yes Safety Concerns: Feels Safe At This Time Assistive Devices: Oxygen - Continuous Review of Systems Review of Systems: All systems reviewed & are unremarkable except as noted in HPI & below Physical Exam Constitutional: WD/WN, vitals as above + ill appearing Eyes: PERRL, conjunctivae normal, anicteric sclerae ENMT: external ear and nose normal, oropharynx normal Neck: trachea midline, no thyromegaly Respiratory: normal respiratory effort, lungs clear to auscultation Cardiovascular: Rate/Rhythm: regular rate and regular rhythm Heart Sounds: normal S1 and normal S2; no gallop and no murmur Palpation: normal PMI Vessels: normal carotid upstroke and radial pulses present; no JVD and no carotid bruit Extremities: no edema Gastrointestinal (Abdomen): normal bowel sounds, soft, nontender, no hepatosplenomegaly Musculoskeletal: no cyanosis or clubbing, extremities motor strength 5/5 Skin: no rashes, warm and dry Neurologic: PERRL, EOMI, accommodation nl, no face palsy, no dysarthria Psychiatric: A+Ox3, euthymic affect Results & Data ([facility]) Vital Signs (Past 12 Hours) Vital Signs Temp Pulse Pulse Resp BP Pulse Ox 02/24/21 08:00 74 02/24/21 07:53 36.5 C 75 18 91/59 L 100 02/24/21 05:38 117 H 02/24/21 04:28 36.5 C 79 21 94/66 L 99 02/24/21 01:00 36.6 C 02/24/21 00:00 115 H 26 H 99 Laboratory Results Laboratory Results - last 24 hr 02/23/21 02/23/21 02/23/21 13:45 13:45 13:45 WBC 2.59 L RBC 2.23 L Hgb 8.6 L Hct 24.7 L MCV 110.8 H MCH 38.6 H MCHC 34.8 RDW Std Deviation 59.7 H RDW Coeff of Jemima 15.1 H Plt Count 187 MPV 8.2 Neutrophils % (Manual) 24.6 Lymphocytes % (Manual) 46.3 Monocytes % (Manual) 21.1 Eosinophils % (Manual) 0.9 Basophils % (Manual) 0.9 Metamyelocytes % (Man) 0.9 Myelocytes % (Man) 1.8 Blast Cells % (Manual) 3.5 Neutrophils # (Manual) 0.64 L Total Absolute Neuts 0.64 L* Lymphocytes # (Manual) 1.20 Total Abs Lymphocytes 1.20 Monocytes # (Manual) 0.55 Eosinophils # (Manual) 0.02 Basophils # (Manual) 0.02 Metamyelocytes # (Man) 0.02 H Myelocytes # (Manual) 0.05 H Blast Cells # (Man) 0.09 H Blood Smear Review Rouleaux 1+ PT Cancelled INR Cancelled APTT Cancelled PTT Ratio Cancelled ABG pH ABG pCO2 ABG pO2 ABG HCO3 ABG O2 Saturation ABG Base Excess Earle Test Barometric Pressure Oxygen Given Sodium 135 L Potassium 4.4 Chloride 101 Carbon Dioxide 24 Anion Gap 9.0 BUN 17 Creatinine 1.07 Est Cr Clr Drug Dosing Not Reportable Est GFR ( Amer) 81.7 Est GFR (Non-Af Amer) 70.5 BUN/Creatinine Ratio 16.2 Glucose 159 H Lactate Calcium 9.5 Phosphorus Magnesium Total Bilirubin 0.7 Direct Bilirubin AST 22 ALT 36 Alkaline Phosphatase 72 Troponin I < 0.015 NT-Pro-B Natriuret Pep Cancelled Total Protein 8.9 H Total Protein (PEP) Albumin 2.4 L Albumin (PEP) Globulin 6.5 H Albumin/Globulin Ratio 0.4 L Jztge-6-Ojxusouss Nkufn-0-Khgynmxdu Jdxo-6-Khiyhexv Wzfj-3-Evbrbgjo Gamma Globulins Monoclonal Peak 3 Ser Monoclonl Protein Ser Monoclonal Prot 2 PEP Interpretation Lipase 36 L Procalcitonin TSH Random Vancomycin COVID-19 Eval Order SARS-CoV-2 (PCR) Flow Cytometry Comment Blood Type Antibody Screen 02/23/21 02/23/21 02/23/21 13:45 13:45 14:32 WBC RBC Hgb Hct MCV MCH MCHC RDW Std Deviation RDW Coeff of Jemima Plt Count MPV Neutrophils % (Manual) Lymphocytes % (Manual) Monocytes % (Manual) Eosinophils % (Manual) Basophils % (Manual) Metamyelocytes % (Man) Myelocytes % (Man) Blast Cells % (Manual) Neutrophils # (Manual) Total Absolute Neuts Lymphocytes # (Manual) Total Abs Lymphocytes Monocytes # (Manual) Eosinophils # (Manual) Basophils # (Manual) Metamyelocytes # (Man) Myelocytes # (Manual) Blast Cells # (Man) Blood Smear Review Rouleaux PT 13.0 H INR 1.3 H APTT 30.2 PTT Ratio 1.1 ABG pH ABG pCO2 ABG pO2 ABG HCO3 ABG O2 Saturation ABG Base Excess Earle Test Barometric Pressure Oxygen Given Sodium Potassium Chloride Carbon Dioxide Anion Gap BUN Creatinine Est Cr Clr Drug Dosing Est GFR ( Amer) Est GFR (Non-Af Amer) BUN/Creatinine Ratio Glucose Lactate Calcium Phosphorus Magnesium Total Bilirubin Direct Bilirubin AST ALT Alkaline Phosphatase Troponin I NT-Pro-B Natriuret Pep 310 Total Protein Total Protein (PEP) Albumin Albumin (PEP) Globulin Albumin/Globulin Ratio Hmglh-1-Gutzalkns Qyzfh-5-Eszunlqyf Wlgy-2-Rpwkhsoc Xkvf-9-Ammbyosd Gamma Globulins Monoclonal Peak 3 Ser Monoclonl Protein Ser Monoclonal Prot 2 PEP Interpretation Lipase Procalcitonin TSH Random Vancomycin COVID-19 Eval Order SARS-CoV-2 (PCR) Flow Cytometry Comment Pending Blood Type Antibody Screen 02/23/21 02/23/21 02/23/21 14:32 14:32 15:23 WBC RBC Hgb Hct MCV MCH MCHC RDW Std Deviation RDW Coeff of Jemima Plt Count MPV Neutrophils % (Manual) Lymphocytes % (Manual) Monocytes % (Manual) Eosinophils % (Manual) Basophils % (Manual) Metamyelocytes % (Man) Myelocytes % (Man) Blast Cells % (Manual) Neutrophils # (Manual) Total Absolute Neuts Lymphocytes # (Manual) Total Abs Lymphocytes Monocytes # (Manual) Eosinophils # (Manual) Basophils # (Manual) Metamyelocytes # (Man) Myelocytes # (Manual) Blast Cells # (Man) Blood Smear Review Rouleaux PT INR APTT PTT Ratio ABG pH ABG pCO2 ABG pO2 ABG HCO3 ABG O2 Saturation ABG Base Excess Earle Test Barometric Pressure Oxygen Given Sodium Potassium Chloride Carbon Dioxide Anion Gap BUN Creatinine Est Cr Clr Drug Dosing Est GFR ( Amer) Est GFR (Non-Af Amer) BUN/Creatinine Ratio Glucose Lactate Calcium Phosphorus Magnesium Total Bilirubin Direct Bilirubin AST ALT Alkaline Phosphatase Troponin I NT-Pro-B Natriuret Pep Total Protein Total Protein (PEP) Pending Albumin Albumin (PEP) Pending Globulin Albumin/Globulin Ratio Xqejq-6-Naryzljus Pending Idbpf-9-Rjjdgalow Pending Nkjp-6-Ggfemwyl Pending Yarx-6-Qoilqwmi Pending Gamma Globulins Pending Monoclonal Peak 3 Pending Ser Monoclonl Protein Pending Ser Monoclonal Prot 2 Pending PEP Interpretation Pending Lipase Procalcitonin TSH Random Vancomycin COVID-19 Eval Order Covid19 at [facility] SARS-CoV-2 (PCR) NEGATIVE Flow Cytometry Comment Blood Type Antibody Screen 02/23/21 02/23/21 02/23/21 17:25 17:25 22:04 WBC RBC Hgb Hct MCV MCH MCHC RDW Std Deviation RDW Coeff of Jemima Plt Count MPV Neutrophils % (Manual) Lymphocytes % (Manual) Monocytes % (Manual) Eosinophils % (Manual) Basophils % (Manual) Metamyelocytes % (Man) Myelocytes % (Man) Blast Cells % (Manual) Neutrophils # (Manual) Total Absolute Neuts Lymphocytes # (Manual) Total Abs Lymphocytes Monocytes # (Manual) Eosinophils # (Manual) Basophils # (Manual) Metamyelocytes # (Man) Myelocytes # (Manual) Blast Cells # (Man) Blood Smear Review Rouleaux PT INR APTT PTT Ratio ABG pH ABG pCO2 ABG pO2 ABG HCO3 ABG O2 Saturation ABG Base Excess Earle Test Barometric Pressure Oxygen Given Sodium Potassium Chloride Carbon Dioxide Anion Gap BUN Creatinine Est Cr Clr Drug Dosing Est GFR ( Amer) Est GFR (Non-Af Amer) BUN/Creatinine Ratio Glucose Lactate 1.1 Calcium Phosphorus Magnesium Total Bilirubin Direct Bilirubin AST ALT Alkaline Phosphatase Troponin I NT-Pro-B Natriuret Pep Total Protein Total Protein (PEP) Albumin Albumin (PEP) Globulin Albumin/Globulin Ratio Xpwzi-1-Fkdbrhbwl Gieaj-1-Beakixhiw Ibam-5-Ksncsnmg Sttl-0-Hjdtnvpx Gamma Globulins Monoclonal Peak 3 Ser Monoclonl Protein Ser Monoclonal Prot 2 PEP Interpretation Lipase Procalcitonin 1.35 H TSH Random Vancomycin COVID-19 Eval Order SARS-CoV-2 (PCR) Flow Cytometry Comment Blood Type A Positive Antibody Screen NEGATIVE 02/23/21 02/23/21 02/23/21 22:04 22:04 23:12 WBC RBC Hgb Hct MCV MCH MCHC RDW Std Deviation RDW Coeff of Jemima Plt Count MPV Neutrophils % (Manual) Lymphocytes % (Manual) Monocytes % (Manual) Eosinophils % (Manual) Basophils % (Manual) Metamyelocytes % (Man) Myelocytes % (Man) Blast Cells % (Manual) Neutrophils # (Manual) Total Absolute Neuts Lymphocytes # (Manual) Total Abs Lymphocytes Monocytes # (Manual) Eosinophils # (Manual) Basophils # (Manual) Metamyelocytes # (Man) Myelocytes # (Manual) Blast Cells # (Man) Blood Smear Review Rouleaux PT INR APTT 45.0 H PTT Ratio 1.7 ABG pH 7.54 H* ABG pCO2 28 L ABG pO2 70 L ABG HCO3 24 ABG O2 Saturation 93.6 ABG Base Excess 1.4 Earle Test POS Barometric Pressure 740.8 Oxygen Given 15 L Sodium Potassium Chloride Carbon Dioxide Anion Gap BUN Creatinine Est Cr Clr Drug Dosing Est GFR ( Amer) Est GFR (Non-Af Amer) BUN/Creatinine Ratio Glucose Lactate Calcium Phosphorus Magnesium 1.9 Total Bilirubin Direct Bilirubin AST ALT Alkaline Phosphatase Troponin I < 0.015 NT-Pro-B Natriuret Pep Total Protein Total Protein (PEP) Albumin Albumin (PEP) Globulin Albumin/Globulin Ratio Pcgop-6-Frgpduumf Iaxyz-5-Kxaapiept Zxwo-7-Uilkdjeg Bfaz-1-Tluhizjh Gamma Globulins Monoclonal Peak 3 Ser Monoclonl Protein Ser Monoclonal Prot 2 PEP Interpretation Lipase Procalcitonin TSH Random Vancomycin COVID-19 Eval Order SARS-CoV-2 (PCR) Flow Cytometry Comment Blood Type Antibody Screen 02/24/21 02/24/21 02/24/21 06:03 06:03 06:03 WBC 3.10 L RBC 1.98 L Hgb 7.6 L Hct 22.4 L MCV 113.1 H MCH 38.4 H MCHC 33.9 RDW Std Deviation 61.2 H RDW Coeff of Jemima 15.3 H Plt Count 182 MPV 8.9 Neutrophils % (Manual) Lymphocytes % (Manual) Monocytes % (Manual) Eosinophils % (Manual) Basophils % (Manual) Metamyelocytes % (Man) Myelocytes % (Man) Blast Cells % (Manual) Neutrophils # (Manual) Total Absolute Neuts Lymphocytes # (Manual) Total Abs Lymphocytes Monocytes # (Manual) Eosinophils # (Manual) Basophils # (Manual) Metamyelocytes # (Man) Myelocytes # (Manual) Blast Cells # (Man) Blood Smear Review Rouleaux PT Cancelled INR Cancelled APTT PTT Ratio ABG pH ABG pCO2 ABG pO2 ABG HCO3 ABG O2 Saturation ABG Base Excess Earle Test Barometric Pressure Oxygen Given Sodium 135 L Potassium 4.4 Chloride 104 Carbon Dioxide 25 Anion Gap 6.0 BUN 21 H Creatinine 1.61 H D Est Cr Clr Drug Dosing 49.9 Est GFR ( Amer) 49.8 Est GFR (Non-Af Amer) 43.0 BUN/Creatinine Ratio 13.1 Glucose 162 H Lactate Calcium 8.9 Phosphorus 4.5 Magnesium 2.4 Total Bilirubin 0.9 Direct Bilirubin 0.4 H AST 19 ALT 35 Alkaline Phosphatase 67 Troponin I < 0.015 NT-Pro-B Natriuret Pep Total Protein 8.1 Total Protein (PEP) Albumin 2.1 L Albumin (PEP) Globulin 6.0 H Albumin/Globulin Ratio 0.4 L Upuaw-3-Tcqlzwhhj Wgqwa-3-Jvankfsuo Jouo-7-Rbotrbjp Bfcd-1-Ezwwhogg Gamma Globulins Monoclonal Peak 3 Ser Monoclonl Protein Ser Monoclonal Prot 2 PEP Interpretation Lipase Procalcitonin TSH 0.791 Random Vancomycin COVID-19 Eval Order SARS-CoV-2 (PCR) Flow Cytometry Comment Blood Type Antibody Screen 02/24/21 02/24/21 06:03 07:57 WBC RBC Hgb Hct MCV MCH MCHC RDW Std Deviation RDW Coeff of Jemima Plt Count MPV Neutrophils % (Manual) Lymphocytes % (Manual) Monocytes % (Manual) Eosinophils % (Manual) Basophils % (Manual) Metamyelocytes % (Man) Myelocytes % (Man) Blast Cells % (Manual) Neutrophils # (Manual) Total Absolute Neuts Lymphocytes # (Manual) Total Abs Lymphocytes Monocytes # (Manual) Eosinophils # (Manual) Basophils # (Manual) Metamyelocytes # (Man) Myelocytes # (Manual) Blast Cells # (Man) Blood Smear Review Jase PT 13.0 H INR 1.3 H APTT 72.9 H* PTT Ratio 2.8 ABG pH ABG pCO2 ABG pO2 ABG HCO3 ABG O2 Saturation ABG Base Excess Earle Test Barometric Pressure Oxygen Given Sodium Potassium Chloride Carbon Dioxide Anion Gap BUN Creatinine Est Cr Clr Drug Dosing Est GFR ( Amer) Est GFR (Non-Af Amer) BUN/Creatinine Ratio Glucose Lactate Calcium Phosphorus Magnesium Total Bilirubin Direct Bilirubin AST ALT Alkaline Phosphatase Troponin I NT-Pro-B Natriuret Pep Total Protein Total Protein (PEP) Albumin Albumin (PEP) Globulin Albumin/Globulin Ratio Anxzj-6-Nwzmdopxo Nsqph-8-Dpdsakrqd Mnrz-6-Ztzpsqtv Vqwj-3-Nenkzvhp Gamma Globulins Monoclonal Peak 3 Ser Monoclonl Protein Ser Monoclonal Prot 2 PEP Interpretation Lipase Procalcitonin TSH Random Vancomycin 16.4 COVID-19 Eval Order SARS-CoV-2 (PCR) Flow Cytometry Comment Blood Type Antibody Screen Diagnostic Findings Echocardiogram 02/24/2021 Preserved LV systolic function EF 60-65% and no wall motion abnormalities Mild thickening of the aortic valve leaflets No pericardial effusion ECG Additional Comments: EKG 02/23/2021 Sinus tachycardia with minimal criteria for inferior infarct unchanged from 02/18/2021, 06/10/2019 (1) Anemia Anemia type: unspecified type Qualified Code(s): D64.9 - Anemia, unspecified (2) Pulmonary embolism Acute cor pulmonale presence: unspecified Chronicity: acute Pulmonary embolism type: unspecified Qualified Code(s): I26.99 - Other pulmonary embolism without acute cor pulmonale
[2021-02-24] MEDS ORDERED: CEFEPIME 2,000 MG in SYRINGE 0 ML IV SCH (12:00)
[2021-02-24] MEDS ORDERED: metroNIDAZOLE 500 MG/100 ML BAG IV SCH (12:00)
--- NOTE | 2021-02-24 12:04 | Pulmonary Consultation ---
Date of Consultation February 24, 2021 Assessment & Plan (1) Anemia: Anemia type: unspecified type Qualified Code(s): D64.9 - Anemia, unspecified (2) Pulmonary embolism: Acute cor pulmonale presence: unspecified Chronicity: acute Pulmonary embolism type: unspecified Qualified Code(s): I26.99 - Other pulmonary embolism without acute cor pulmonale (3) Abnormal CT scan of lung: (4) Leukopenia: Impression: 70-year-old male recently diagnosed with gout and placed on colchicine with leukopenia and anemia and circulating immature forms suspicious for myelodysplastic syndrome. He is admitted with PE and abnormal CT scan although I do not have those images available to review. He is also been febrile. He did have a focal area of thickening noted on his aortic valve of unclear significance. Recommendations: 1. I reviewed the peripheral smear and counts with hematology here and they feel that the patient will be best served by transfer to [facility] as he likely requires bone marrow biopsy for definitive diagnosis and management. Logistically, this would be difficult to complete over the weekend here. This was communicated to the patient as well as to the hospitalist service. 2. PE: Again I cannot review the imaging but his biomarkers and echocardiogram showed no evidence of RV strain or dysfunction. Would not classify him as a failure of Eliquis given that he was only on it for a few days. He is on heparin for now which seems reasonable as he may require invasive procedures in the future and heparin will offer the ability for anticoagulation to be held for procedures. He is hemodynamically stable and there is no indication for thrombolysis or escalation of care currently. 3. Fevers: Patient's lactate was normal and he does not demonstrate endorgan malperfusion. Does not qualify for diagnosis of sepsis. Is been placed on broad-spectrum antibiotics. Unclear significance of the focal thickening of the aortic valve and consideration for TIMOTEO and correlation with blood cultures may be appropriate. After discussion with the hospitalist, it appears that the patient will likely be transferred to a higher level of care to facilitate work-up of potential myelodysplastic syndrome/bone marrow failure. Pulmonary will sign off at this point time. Feel free to contact us if we can be of additional assistance. History of Present Illness Attending Physician: Min Nair MD History of Present Illness Asked by the hospitalist to evaluate this patient with PE. History is obtained from discussion with the patient as well as discussion with the admitting hospitalist service and reviewed electronic medical record. The patient is a 70-year-old male who was sent to the emergency room for fatigue weight loss shortness of breath. Patient was recently diagnosed with gout about 6 weeks ago and placed on colchicine and maintenance allopurinol. I do not have laboratory studies available from review. Is unclear when he last had a normal white count but he was apparently pancytopenic in the outpatient setting and was sent to heme-onc for referral. That appointment was never completed. The patie nt reports progressive fatigue with poor p.o. intake and unintentional weight loss of about 35 pounds. He reports night sweats and chills. He reportedly had an outpatient CT angiogram 02/21/2021 which I do not have available to review which showed a segmental PE in the right upper and lower lobes. There were also several small pulmonary nodules noted. He was initiated on Eliquis at that point time. He had a lower extremity Doppler in the emergency room which did show a DVT and he was initiated on heparin. He denies syncope, presyncope, chest pain, or palpitations. Allergies Allergy/AdvReac Type Severity Reaction Status Date / Time tadalafil [From Cialis] AdvReac Mild Rash Unverified 02/23/21 16:05 Home Medications Medication Instructions Recorded Confirmed Type allopurinol 100 mg PO QAM 01/09/21 02/23/21 History Folate 666 mg PO QAM 02/23/21 02/23/21 History apixaban [Eliquis] 10 mg PO BID 02/23/21 02/23/21 History cyanocobalamin (vitamin B-12) 1,000 mcg PO QAM 02/23/21 02/23/21 History [Vitamin B-12] Patient History Medical History (Updated 02/24/21 @ 12:06 by Tadeo Polk MD) History of colon polyps History of melanoma Hypertension Pulmonary embolism Sciatica Social History Smoking Status: Never smoker Hx Alcohol Use: No Hx Substance Use: No Preferred Language: German Beliefs That Will Affect Care: None Current Living Situation: Spouse Feels Safe at Home: Yes Safety Concerns: Feels Safe At This Time Assistive Devices: Oxygen - Continuous Review of Systems Review of Systems: Please refer to admission H&P. No additions or deletions Physical Exam Constitutional: not ill appearing Patient feels fatigued and slightly pale Neck: trachea midline, no thyromegaly Respiratory: normal respiratory effort, lungs clear to auscultation Cardiovascular: RRR, no murmur, no edema Gastrointestinal (Abdomen): normal bowel sounds, soft, nontender, no hepatosplenomegaly Musculoskeletal: Extremities: extremities normal to inspection Skin: no rashes, warm and dry Neurologic: Nonfocal exam Lymphatic: no cervical lymphadenopathy Results & Data Results & Data ([facility]) Vital Signs (Past 12 Hours) Vital Signs Temp Pulse Pulse Resp BP Pulse Ox 02/24/21 08:00 74 02/24/21 07:53 36.5 C 75 18 91/59 L 100 02/24/21 05:38 117 H 02/24/21 04:28 36.5 C 79 21 94/66 L 99 02/24/21 01:00 36.6 C 02/24/21 00:00 115 H 26 H 99 Laboratory Results 02/24/21 06:03 02/24/21 06:03 Troponin negative x2 BNP 310 Peripheral smear reviewed by pathology and did show evidence of circulating blasts and immature forms as well as rouleaux formation with the red blood cells. No comment on nucleated red blood cells in this peripheral smear. Diagnostic Findings The patient's imaging from [facility] is not been pushed into our system so I am unable to review it or comment on findings. Reportedly did show the subsegmental PEs with some tree-in-bud opacities Echocardiogram showed concentric LVH without regional wall motion abnormalities. EF of 60 to 65%. Focal thickening of the noncoronary cusp of the aortic valve. Right ventricle showed normal systolic size and function. PG Care Time/CCT Total # of Minutes Spent Total Time Spent with Patient: Total time spent is greater than 50% in coordination of care (as documented) at patient's floor/unit and/or counseling patient: Coding Level of Care Code 66953 Inpt Consult Level 4 Diagnoses Anemia D64.9 Anemia type: unspecified type Pulmonary embolism I26.99 Acute cor pulmonale presence: unspecified Chronicity: acute Pulmonary embolism type: unspecified Abnormal CT scan of lung R91.8 Leukopenia D72.819
--- NOTE | 2021-02-24 13:48 | Pharmacy Report ---
Pharmacy Abx Dose Short Note - Date of Service February 24, 2021 - Assessment & Plan Assessment 70 year old M receiving Vancomycin/Cefepime/Flagyl/Doxycyline for empiric treatment of possible infection; patient is pancytopenic with fever (Tmax 39.6), history of melanoma with recent PE. Patient initially received vancomycin/zosyn, SCr went from 1.01 to 1.61 this morning, therefore switched zosyn to cefepime/flagyl to avoid nephrotoxic combination. Random vancomycin level also obtained this morning d/t significant SCr increase. Blood cultures are pending. ?pulmonary source. MRSA nasal swab entered. Antibiotics entered as empiric and will need to be extended if continued need. Plan Vancomycin * Received loading dose 2500 mg on 02/23/21 * Random level 16.4, redosed with 1250 mg x 1 (13 mg/kg) * New estimated half life ~15 hours, but will obtain random level with AM labs on 02/25 which should be ~ time to redose Pharmacy will continue to follow and will adjust dose/frequency as necessary. Thank you.
[2021-02-24 13:58] LABS: Partial Thromboplastin Ratio 2.1
[2021-02-24 14:00] LABS: Partial Thromboplastin Time 54.4 Seconds (21.0-31.0)
[2021-02-24] MEDS: ACETAMINOPHEN 325 MG TAB PO PRN (14:44)
--- NOTE | 2021-02-24 14:49 | Hospitalist Progress Note ---
Date of Service February 24, 2021 Assessment & Plan (1) Sepsis: SIRS Possible Sepsis Acute respiratory failure with hypoxia No obvious source of infection CXR:Cardiomegaly with prominence of the central pulmonary vessels. Correlate clinically for evidence of mild congestive failure. Question trace left pleural effusion. Blood cultures pending Covid screen is negative Procalcitonin:1 .3 Normal Lactate levels Empirically started on vancomycin, Zosyn>> transition to cefepime (2) Pancytopenia: Peripheral smear suggestive of leukopenia and anemia with abnormal neutrophils and rare blasts concerning for possible MDS or leukemia. Heme/onc consulted Flow cytometry pending We will transfer to tertiary care facility--[facility] for possible bone marrow biopsy and further evaluation as suggested by pulmonary (3) Chest pain: Atypical chest pain Negative cardiac enzymes Echo showed normal regional wall motion abnormality Appreciate cardiology input Currently patient has no chest pain (4) Pulmonary embolism: Acute PE Acute Left LE DVT Venous Doppler:Left lower extremity deep venous thrombi as above. No right lower extremity DVT. Diagnosed to have PE on 02/21/21 as outpatient with CTA dt SOB, started on Eliquis. We will hold Eliquis given possible need for bone biopsy Continue heparin drip for now Appreciate pulmonology input Continue supplemental oxygen as needed Acute Kidney Injury Creatinine 1.6 Avoid nephrotoxic agents as able Monitor renal function Received IV fluids (5) Hypertension: Blood pressure relatively low Currently not on any antihypertensives Monitor blood pressure (6) Macrocytic anemia: As above (7) Weight loss: Reports 35 lbs weight loss within past month Loss of appetite Concern for malignancy (8) Fatigue: Secondary to comorbidities (9) Gout: H/O Gout S/P knee aspirated on 01/10/[address] Cui in outpt orthopedics S/P repeat Aspiration 02/24/21 Studies suggestive of gout Septic knee jt less likely Appreciate orthopedics input Continue allopurinol as able We will consider MRI if continues to be hospitalized Needs follow-up with orthopedics upon discharge (10) DVT prophylaxis: heparin gtt CODE: FULL Dispo: Regino Marlow Admission and Anticipated Discharge Date Admission Date: February 23, 2021 Subjective Patient is seen and examined at bedside States having significant generalized weakness on the left knee, left great toe pain Denies chest pain, dyspnea, dizziness, nausea, abdominal pain Saturating well on 2 L of supplemental oxygen Discussed with pulmonology and orthopedics today Had left knee aspiration today Plan to be transferred to [facility] for further evaluation of possible MDS, leukemia Review of Systems Review of Systems: All systems reviewed & are unremarkable except as noted in HPI & below Physical Exam Physical Exam: Physical Exam: Vitals signs as noted above General Appearance:Moderately built and nourished, no apparent distress Head: normocephalic, Atraumatic Eyes: normal inspection, EOMI Neck: supple, Trachea midline Respiratory/Chest: Normal breath sounds, minimal basal crackles Cardiovascular: S1, S2, No murmur Abdomen/GI:Soft, Non tender, Bowel sounds present Extremities/Musculoskeletal:normal inspection, no edema, left great toe tender Neurologic/Psych:AAOX3, grossly no focal neurological deficits Skin: normal color, warm Results & Data Results & Data ([facility]) Vital Signs (Past 12 Hours) Vital Signs Temp Pulse Pulse Resp BP Pulse Ox 02/24/21 08:00 74 02/24/21 07:53 36.5 C 75 18 91/59 L 100 02/24/21 05:38 117 H 02/24/21 04:28 36.5 C 79 21 94/66 L 99 Laboratory Results Short CBC 02/24/21 Range/Units 06:03 WBC 3.10 L (4.8-10.8) K/uL Hgb 7.6 L (14.0-18.0) g/dL Hct 22.4 L (42-52) % Plt Count 182 (130-400) K/uL BMP 02/24/21 06:03 Sodium 135 L Potassium 4.4 Chloride 104 Carbon Dioxide 25 BUN 21 H Creatinine 1.61 H D Glucose 162 H Calcium 8.9 Cardiac Enzymes 02/23/21 02/24/21 Range/Units 22:04 06:03 Troponin I < 0.015 < 0.015 (0-0.045) ng/ml Liver Function 02/24/21 Range/Units 06:03 Total Bilirubin 0.9 (0.2-1) mg/dl Direct Bilirubin 0.4 H (0-0.2) mg/dl AST 19 (15-37) U/L ALT 35 (12-78) U/L Alkaline Phosphatase 67 (45-117) U/L Albumin 2.1 L (3.4-5.0) gm/dl (1) Pulmonary embolism Acute cor pulmonale presence: unspecified Chronicity: acute Pulmonary embolism type: unspecified Qualified Code(s): I26.99 - Other pulmonary embolism without acute cor pulmonale
[2021-02-24] MEDS ORDERED: BUPIVACAINE/EPINEPHRINE 0.25% 1:200,000 30 ML VIAL INFIL SCH (15:30)
[2021-02-24] MEDS ORDERED: TRIAMCINOLONE ACET 40 MG/ML VIAL IA SCH (15:30)
--- NOTE | 2021-02-24 16:39 | Orthopedic Consultation ---
Date of Service February 24, 2021 Assessment & Plan (1) Gout: There is no signs of infection of his left knee. I aspirated about 30 cc of blood-tinged and straw-colored fluid from his knee. There was no signs of infection with the aspiration. Exam and injection of 80 mg of Kenalog help out with some of his knee pain while he deals with his other medical issues. If we were to continue to treat him I want 1 to get an MRI of his left knee. I am a little bit concerned about his quad tendon. I believe he may be transferred to [facility]. I am happy to follow him up as an outpatient and time. The aspiration was sent to lab for analysis. The left knee was prepped with alcohol swabs. The left knee was then aspirated with a 16-gauge needle. I was able to get about 30 cc of blood-tinged and straw-colored fluid. I then gave him an injection of 80 mg of Kenalog and 3 cc of Marcaine. A Band-Aid was placed. He tolerated the procedure well. History of Present Illness Reason for Consultation: Left knee effusion. Requesting Physician: . Attending Physician: Min Nair MD Hernandez is a pleasant 70-year-old male who was recently admitted for sepsis and pancytopenia. He has been having a 6-week history of left knee pain and effusions. He saw my partner Dr. Cui about 5 weeks ago and had an aspiration and injection of his left knee. The aspiration fluid came back positive for gout. His knee did well for about 2 weeks. Unfortunately began to swell again. He has a lot of pain in his knee. He states he is unable to ambulate because of his left knee pain. He is dealing with sepsis at the hospital. There was concerns from the medical team that there may be a septic joint. Orthopedics was consulted to evaluate and treat.. Allergies Allergy/AdvReac Type Severity Reaction Status Date / Time tadalafil [From Cialis] AdvReac Mild Rash Unverified 02/23/21 16:05 Home Medications Medication Instructions Recorded Confirmed Type allopurinol 100 mg PO QAM 01/09/21 02/23/21 History Folate 666 mg PO QAM 02/23/21 02/23/21 History apixaban [Eliquis] 10 mg PO BID 02/23/21 02/23/21 History cyanocobalamin (vitamin B-12) 1,000 mcg PO QAM 02/23/21 02/23/21 History [Vitamin B-12] Past Med/Surg History Medical History History of colon polyps History of melanoma Hypertension Pulmonary embolism Sciatica Social History Smoking Status: Never smoker Hx Alcohol Use: No Hx Substance Use: No Preferred Language: Tamazight Communication Ability: Effective Beliefs That Will Affect Care: None marital status: Current Living Situation: Spouse Feels Safe at Home: Yes Safety Concerns: Feels Safe At This Time Assistive Devices: Oxygen - Continuous Review of Systems All systems reviewed & are unremarkable except as noted in HPI & below. Physical Exam On physical examination of the left knee, there is a 2+ effusion. There is no signs of infection. He does not have much tenderness palpation. He is unable to do a straight leg raise mostly due to weakness. He has a lot of bogginess around his distal quad tendon.. Constitutional WD/WN, vitals as above Eyes PERRL, conjunctivae normal, anicteric sclerae ENMT external ear and nose normal, oropharynx normal Neck trachea midline, no thyromegaly Respiratory normal respiratory effort Cardiovascular RRR, no murmur, no edema Gastrointestinal (Abdomen) normal bowel sounds, soft, nontender, no hepatosplenomegaly Psychiatric A+Ox3, euthymic affect Results & Data Results & Data Laboratory Results . Diagnostic Findings X-rays were reviewed from previous visit and show no signs of arthritis. There is little bit of a patella baja. PG Care Time/CCT Total # of Minutes Spent Total Time Spent with Patient: Total time spent is greater than 50% in coordination of care (as documented) at patient's floor/unit and/or counseling patient: Coding Level of Care Code 09491 Inpt Consult Level 4 (24 - UNRELATED EVALUATION AND MANAGEMENT ) Diagnoses Gout M10.9
--- NOTE | 2021-02-24 17:16 | Discharge Summary ---
Date of Service February 24, 2021 Admission HPI Per Admitting Provider This is a 70-year-old male with PMHx of recent PE and DVT diagnosis now on Eliquis, macrocytic anemia, elevated ferritin, shortness of breath, gouty arthropathy, hypertension. He initially presented to his procurement director on 02/18 for routine appointment for his skin with hx on nonmelanoma skin cancer. Due to his level of fatigue, his procurement director got him to see his PCP in the office right after their appointment. Dr. Kenny, PCP saw him on 02/18/2021 for complaints of not feeling himself, lack of energy, weight loss and worsening shortness of breath and left toe pain. He received 1 L NSS in the office at that time due to hypotension and his BP meds were discontinued. Left knee was tapped to check for gout about 6 weeks ago and he was found to have gout crystals, and placed on 5 day so f colchicine and then maintenance allopurinol. His blood work was the most revealing showing pancytopenia with macrocytic anemia, and stable platelet count from PCP appointment. He has been referred to Heme/onc for further workup but not seen them yet. Pt labs are similar today. CXR was unimpressive on 02/18, so underwent CT angio on 02/21/2021 showing segmental PE in right upper and lower lobes, few small tree-in-bud opacities may reflect small airway infection or aspiration, and small lung nodules measuring 4 to 5 mm. He was started on Eliquis. Left lower extremity Doppler today in the ER is positive for DVT. At bedside the patient has difficult talking to me due to hoarseness, and remains short of breath. He did start taking eliquis on Sunday night and last dose was this morning. He notes just started really feeling bad today. He has had poor PO intake for several weeks due to poor appetite, and has lost 35 lbs in the past month. He admits to chills and sometimes sweats at night. Remote hx of smoking and has not drank any alcohol in past 2 months. He used to drink " a few six packs in a week". No alcohol recently because he hasn't felt like himself. Family Hx: Mother diet last year in her 80s due to hip fracture and cardiac issues following this. Father diet of brain aneurysm in his 50s many years ago. Two sisters, [employer]. He was started on a heparin gtt in there ER. Pt has rigors at bedside, and after my visit was informed that he had a Tmax of 39.2. Concern for septic presentation so will proceed with infectious workup and cover with empiric antibiotics vanc and zosyn. Admission Exam Per Admitting Provider Physical Exam Physical Exam: General: awake, alert, moderate distress, toxic appearing, + rigors developing Head: Normocephalic, atraumatic ENT: PERRL, EOMI, no pharyngeal exudate, mucous membranes dry Chest: Clear to auscultation, on 2 L via NC with O2 sats 98%, no adventitious breath sounds Cardiac: Sinus tach with HR in 110s, no murmur, no JVD, normal peripheral pulses, good capillary refill Abdominal: NABS x 4 quadrants, soft, nondistended, nontender to palpation, no rebound or guarding Extremities: Left knee edematous with effusion superiorly, painful to move, no erythema, otherwise normal inspection, no peripheral edema or erythema, calfs nontender to palpation Psych: Normal mood and affect Neuro: AAO x 3, strength intact bilaterally and rated 5/5, no motor deficits, speech is clear, no peripheral sensory deficits Principal Diagnosis Possible leukemia/MDS Acute pulmonary embolism Acute deep vein thrombosis of Left Lower Extremity Pancytopenia Atypical chest pain Acute kidney injury Gout Hypoxia Possible sepsis Discharge Data Allergies Allergy/AdvReac Type Severity Reaction Status Date / Time tadalafil [From Cialis] AdvReac Mild Rash Unverified 02/23/21 16:05 Consultations 02/23/21 15:57 ED Decision to Admit Stat 02/23/21 17:02 Consult Orthopedic Surgery Routine 02/23/21 18:35 Consult Cardiology Routine Consult Hematology Routine Consult Pulmonology Routine 02/24/21 14:48 Burn CD for patient Routine Procedures Performed CXR:Cardiomegaly with prominence of the central pulmonary vessels. Correlate clinically for evidence of mild congestive failure. Question trace left pleural effusion. Venous Doppler:There is normal compressibility, flow, and augmentation within the right lower extremity deep venous structures. Occlusive thrombus is noted within the left superficial femoral vein medial and distal portions extending into the peroneal vein. Remaining deep venous structures of the left lower extremity appear unremarkable. Mildly complex Antony's cyst on the left measures 5.6 x 2.4 x 0.9 cm. Ordered Studies 02/23/21 13:45 US venous doppler LE BI Stat Hospital Course (1) Sepsis: SIRS Possible Sepsis Acute respiratory failure with hypoxia No obvious source of infection CXR:Cardiomegaly with prominence of the central pulmonary vessels. Correlate clinically for evidence of mild congestive failure. Question trace left pleural effusion. Blood cultures pending Covid screen is negative Procalcitonin:1 .3 Normal Lactate levels Empirically started on vancomycin, Zosyn>> transition to cefepime (2) Pancytopenia: Peripheral smear suggestive of leukopenia and anemia with abnormal neutrophils and rare blasts concerning for possible MDS or leukemia. Heme/onc consulted Flow cytometry pending We will transfer to tertiary care facility--[facility] for possible bone marrow biopsy and further evaluation as suggested by pulmonary (3) Chest pain: Atypical chest pain Negative cardiac enzymes Echo showed normal regional wall motion abnormality Appreciate cardiology input Currently patient has no chest pain (4) Pulmonary embolism: Acute PE Acute Left LE DVT Venous Doppler:Left lower extremity deep venous thrombi as above. No right lower extremity DVT. Diagnosed to have PE on 02/21/21 as outpatient with CTA dt SOB, started on Eliquis. We will hold Eliquis given possible need for bone biopsy Continue heparin drip for now Appreciate pulmonology input Continue supplemental oxygen as needed Acute Kidney Injury Creatinine 1.6 Avoid nephrotoxic agents as able Monitor renal function Received IV fluids (5) Hypertension: Blood pressure relatively low Currently not on any antihypertensives Monitor blood pressure (6) Macrocytic anemia: As above (7) Weight loss: Reports 35 lbs weight loss within past month Loss of appetite Concern for malignancy (8) Fatigue: Secondary to comorbidities (9) Gout: H/O Gout S/P knee aspirated on 01/10/[address] Cui in outpt orthopedics S/P repeat Aspiration 02/24/21 Studies suggestive of gout Septic knee jt less likely Appreciate orthopedics input Continue allopurinol as able We will consider MRI if continues to be hospitalized Needs follow-up with orthopedics upon discharge (10) DVT prophylaxis: heparin gtt CODE: FULL Dispo: Regino Marlow Total Time Total Time Spent Total Time Spent (In Minutes): 50 minutes Total Time Includes: Examination of the Patient, Discharge Planning, Medication Reconciliation, Communication With Other Providers and Other Discharge Plan Discharge Items Patient Disposition: Transfer Acute Care Hospital Reason For Visit: CHEST PAIN, ANEMIA, PE Discharge Diagnosis: Possible leukemia/MDS Acute pulmonary embolism Acute deep vein thrombosis of Left Lower Extremity Pancytopenia Atypical chest pain Acute kidney injury Gout Hypoxia Possible sepsis Condition on Discharge: Good Activity: Per Instructions section Exercise/Sports: Wait until after follow-up appointment Non-emergency contact: Primary Care Provider, Surgeon and Oncologist Call non-emergency contact if: you have any medication questions, your symptoms worsen, your pain is not controlled, your pain is concerning for you and you have a fever Follow-up/Referrals: Yg Kenny, [Primary Care Provider] - Diet: Heart Healthy Addtl Attending Provider Instructions: Follow up with Dr.John Velasquez at [facility] for further evaluation Pending Studies at Discharge: Yes Studies:: Blood Culture, Cytometry Study Stand-Alone Forms: My [facility] Skilled Items Patient informed of condition?: Yes DNR: No Discharge Level of Care: Other Communicable Disease: No Discharge Prognosis: Stable Lines: Peripheral IV Urinary Catheter: No Medications and DC Order Prescriptions: New doxycycline hyclate 100 mg Capsule 100 mg PO BID Qty: 0 RF: 0 Continued allopurinol 100 mg tablet 100 mg PO QAM RF: 0 cyanocobalamin (vitamin B-12) [Vitamin B-12] 1,000 mcg Tablet 1,000 mcg PO QAM RF: 0 Eliquis 5 mg tablet 10 mg PO BID RF: 0 Folate 666 mg PO QAM RF: 0 Discharge Orders: Discharge Order (Routine); Ordered 02/24/21 Ordered By: Min Nair Admission Data Admit Date/Time: 02/23/21 16:27 Attending Provider: Min Nair Admit Provider: Anderson Hou Primary Care Provider: Yg Kenny Other Providers: Anderson Hou ; Karol Triplett ; Adan Flores ; Tadeo Polk ; Rory Cui
[2021-02-24] MEDS ORDERED: SODIUM CHLORIDE 0.9% 1000ML 1,000 ML IV ONE (17:45)
[2021-02-24 18:05] LABS: Appearance Synovial Fluid CLOUDY; Color Synovial Fluid RED; Mononuclear WBC Synovial 19.3 %; Polynuclear WBC Synovial 80.7 %; RBC Synovial Fluid (A) 89000 /uL; Source Synovial Fluid KNEE; WBC Synovial Fluid (A) 8600 /ul (0-200)
[2021-02-25 20:17] LABS: Albumin 2.4 g/dL (3.8-4.8); Alpha 1 Globulin 0.7 g/dL (0.2-0.3); Alpha 2 Globulin 1.1 g/dL (0.5-0.9); Beta-1-Globulin 0.4 g/dL (0.4-0.6); Beta-2-Globulin 0.8 g/dL (0.2-0.5); Gamma Globulin 1.8 g/dL (0.8-1.7); Monoclonal Protein Band 1 DNR g/dL (NONE DETECTED); Monoclonal Protein Band 2 DNR g/dL (NONE DETECTED); Monoclonal Protein Band 3 DNR g/dL (NONE DETECTED); Total Protein 7.2 g/dL (6.1-8.1)
--- NOTE | 2021-02-26 09:13 | Communication Note ---
Date of Service: February 26, 202110/09 blood cultures growing Gram Negative Bacilli: Updated Dr.Shannon Mukherjee at [facility].
== END 2021-02-24 19:30 | disposition short-term general hospital (02) | DRG 871 ==
LOC: ED 13:26 → SUATTDRO 16:27 → 2E 16:27